=== PATIENT | female | born 1950 | race Hispanic/Latino ===

== ENCOUNTER → 2018-10-06 | Outpatient (CLI) | payer MEDICARE | END | disposition home or self-care (01) | LOC: RAH 09:12 | PROVIDERS: ATTEND Orthopaedic Surgery | DX: M87.051 Idiopathic aseptic necrosis of right femur (principal); M87.052 Idiopathic aseptic necrosis of left femur; M25.452 Effusion, left hip | CPT/HCPCS: 72195 ==

== ENCOUNTER 2019-03-25 06:50 | Inpatient (IN) | payer MEDICARE | END 2019-03-27 12:00 | disposition home or self-care (01) | LOC: DAHIP 06:50 → 4BH 12:42 | PROC: 0SRB01Z Replacement of Left Hip Joint with Metal Synthetic Substitute, Open Approach (ICD-10-PCS; principal; 2019-03-25 09:15) | DX: M16.12 Unilateral primary osteoarthritis, left hip (principal) ==